=== PATIENT | female | born 1995 | race Caucasian/White ===

== ENCOUNTER → 2018-01-16 11:08 | Outpatient (CLI) | payer OTHER, SELFPAY ==
[2018-01-19 14:14] LABS: HPV Reflexed? NOT INDICATED
== END ==
PROVIDERS: Visit Provider Obstetrics & Gynecology
DX: Z12.4 Encounter for screening for malignant neoplasm of cervix (principal)
CPT/HCPCS: 88175; G0145

== ENCOUNTER 2018-03-04 08:24 | Day surgery (SDC) | payer OTHER, SELFPAY ==
[2018-02-28 13:55] LABS: Hematocrit 45.2 % (37-47); Hemoglobin 14.9 g/dl (12.0-15.0); Mean Corpuscular Hgb 28.8 pg (27.0-32.0); Mean Corpuscular Volume 87.3 fL (81-99); Mean Platelet Vol. 10.1 fl (6.2-12.0); Platelet Count 290 K/mm3 (150-450); RBC Distribution Width CV 12.3 % (11.6-14.6); RBC Distribution Width SD 39.8 fl (35.1-43.9); Red Blood Count 5.18 M/mm3 (4.2-5.4); Scan Indicated on CBC? Y/N NO; White Blood Count 9.9 K/mm3 (4.4-11.0)
[2018-02-28 14:01] LABS: International Normalized Ratio 1.1; Partial Thromboplast Time 27.3 Seconds (24.1-36.2); Prothrombin Time (Protime)PT. 14.3 SECONDS (11.7-14.9)
[2018-02-28 14:23] LABS: Pregnancy, Serum, hCG Quali. NEGATIVE Negative (0-9 Nonpreg)
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
[2018-03-04] VITALS (7 sets, daily range): BP systolic 89–123; BP diastolic 42–77; PULSE 62–78; RESP 16–18; TEMP 36.2–37.2; O2SAT 94–99; BMI 28.5
[2018-03-04 08:55] LABS: Internal QC Validated? YES +Cl - CLEAR BKGD
[2018-03-04 08:58] LABS: Pregnancy, Urine Negative Negative
--- NOTE | 2018-03-04 14:37 | PCM.OP.BLANK ---
Operative Report Date of Procedure: 03/04/18 Surgeon: Lauri Mcgrath MD, FACOG Anesthesia: Stella Freeman CRNA Type of Anesthesia: General Endotracheal Pre-Op Diagnosis: Pelvic Pain, Endometriosis Postoperative Diagnosis: Pelvic Pain, Endometriosis Procedure: Diagnostic Laparoscopy Findings: 5-6 cm uterus with normal appearing fallopian tubes and ovaries and upper abdomen Indications: This is a 22 year old nulliparous patient who has the above diagnosis. She has had this pain for several years and it is relieved by Lupron. She understands that we may not be able to help with the pain that she has been having but would like to know the extent of her disease. All questions were answered to consider the patient well-informed. Procedure: The patient was taken to the operating room where after induction of general anesthesia, she was placed in the dorsolithotomy position and prepped and draped in the usual sterile fashion. The bladder was drained of approximately 50 cc of clear yellow urine with a catheter. Anterior cervix was grasped with the tenaculum. Conn cannula was placed and attention was turned toward the laparoscopic portion of the procedure. Approximately 15 cc of half percent ropivacaine was injected subumbilically and suprapubically. A 5 mm bladeless trocar was placed subumbilically and intraperitoneal placement confirmed. After CO2 insufflation was complete, a 5 mm bladeless trocar was introduced suprapubically. The above findings were noted. The peritoneal cavity and upper abdomen were examined and noted to be normal. Photographs were taken. Laparoscopic instruments with as much CO2 gas as possible were removed and incisions were closed with interrupted 3-0 Monocryl suture. Steri-Strips placed across the incision. Vaginal instruments were removed. Patient tolerated procedure well was taken to recovery room in satisfactory condition sponge instrument and needle counts were all reportedly correct. Estimated blood loss for the case was minimal. Specimens to pathology: None
--- NOTE | 2018-03-04 14:42 | DCINST_ITS ---
Discharge Diet: No Restrictions - Increase fluid intake for the next 48 hours. Discharge Activity: Return to Normal Activity, May Drive - when you are no longer taking pain/narcotic medicines., May Shower, May Take a Tub Bath May resume sexual activity in: 2 weeks Additional Activity Instructions:: Ambulate often the next week after surgery. Nothing in the vagina for 5 days. Call your doctor if your incision/area has: Continuous Slow Oozing, Sudden Increased Bleeding, Increased Pain/ Swelling, Increased Redness, Foul Smelling Discharge Call your doctor if you observe: Fever of 101 or Higher, Inability to urinate, Inability to have a bowel movement, Using more than one pad per hour Allergies/Adverse Reactions: Allergies acetaminophen [From Vicodin] Allergy (Verified 02/25/18 14:57) Anaphylaxis hydrocodone bitartrate [From Vicodin] Allergy (Verified 02/25/18 14:57) Anaphylaxis Sulfa (Sulfonamide Antibiotics) Allergy (Verified 02/25/18 14:57) Rash Medications to take at Discharge MedroxyPROGESTERone [Depo-Provera] 150 mg IM Q1M 05/18/14 Oxycodone [Oxyir] 5 mg PO Q6H PRN PRN 7 Days #10 tab 03/04/18 The following prescriptions were given: Oxycodone [Oxyir] 5 mg PO Q6H PRN PRN 7 Days #10 tab PRN Reason: Severe Pain (6-05/29) Primary Care Physician: Elisabet Webster PA-C [Primary Care Provider] - Test Results: Test results from this visit will be discussed in further detail at your follow- up appointment, if applicable. Please Follow Up With: Lauri Mcgrath MD - [phone] When: 2-3 weeks
[2018-03-04] MEDS: Ropivacaine 0.5% 30 ML Vial (14:59)
== END 2018-03-04 17:40 | disposition home or self-care (01) ==
LOC: SDC 08:24 → AC 08:25
PROVIDERS: Anesthesiology; Family Provider Family Medicine; PCP Family Medicine; Visit Provider Obstetrics & Gynecology
PROC: (CPT 49320; principal; 2018-03-04 10:55)
DX: R10.2 Pelvic and perineal pain (principal); N80.9 Endometriosis, unspecified; K21.9 Gastro-esophageal reflux disease without esophagitis; F17.210 Nicotine dependence, cigarettes, uncomplicated
CPT/HCPCS: 49320; 36415; 81025; 84703; 85027; 85610; 85730; 86850; 86900; J7120; J2405

== ENCOUNTER → 2018-06-12 14:52 | Outpatient (CLI) | payer OTHER, SELFPAY ==
[2018-06-12 17:57] LABS: CRP < 2.90 mg/L (0.0-3.0)
[2018-06-14 15:56] LABS: Endomysial Antibody IgA Negative (Negative)
[2018-06-15 13:28] LABS: Immunoglobulin A 125 mg/dL (87-352); t-Transglutaminase IgA <2 U/mL (0-3)
== END ==
PROVIDERS: Family Provider Family Medicine; PCP Family Medicine; Referring Provider Internal Medicine Gastroenterology; Visit Provider Internal Medicine Gastroenterology
DX: R19.7 Diarrhea, unspecified (principal)
CPT/HCPCS: 36415; 82784; 83516; 86140; 86255

== ENCOUNTER 2019-08-04 11:25 | Day surgery (SDC) | payer OTHER, SELFPAY ==
--- NOTE | 2019-07-22 01:52 | HP_ITS ---
Intake Vital Signs 07/22/19 Body Mass Index (BMI) 28.5 07/22/19 Height 4 ft 10 in 07/22/19 Weight: 130 lb 07/22/19 Body Mass Index (BMI) 27.1 07/22/19 Blood Pressure 151/91 H 07/22/19 Blood Pressure Location Rt brachial 07/22/19 Blood Pressure Position Sitting 07/22/19 Respiratory Rate 16 07/22/19 Pulse Rate 84 07/22/19 Pulse Source Monitor 07/22/19 Temperature 98.5 F 07/22/19 Temperature Source Oral 07/22/19 Pulse Ox 99 07/22/19 Oxygen Delivery Method room air Intake Visit Reasons: UPDATE H&P FOR APPY Truckload Checker Required: No Is patient in pain?: Yes (RLQ/ Epigastric area) Pain scale (1-10): 5 Allergies acetaminophen [From Vicodin] Allergy (Verified 07/22/19 13:46) Anaphylaxis hydrocodone bitartrate [From Vicodin] Allergy (Verified 07/22/19 13:46) Anaphylaxis Sulfa (Sulfonamide Antibiotics) Allergy (Verified 07/22/19 13:46) Rash Medications alosetron 1 mg tablet 1.5 mg PO DAILY #30 tab 07/22/19 [History Confirmed 07/22/19] leuprolide 3.75 mg (1 month)IM syringe-norethindrone 5 mg (30) tablets ea IM .QMONTHLY #1 ea 07/22/19 [History Confirmed 07/22/19] PFSH Medical History (Updated 07/22/19 @ 13:36 by Ariana Hodges) Diarrhea (Acute) Nausea & vomiting (Acute) Abdominal pain (Acute) Back problem (Acute) Fatigue (Acute) Surgical History (Updated 07/22/19 @ 13:36 by Ariana Hodges) Hx of colonoscopy (Acute) Hx of wisdom tooth extraction (Acute) Hx of laparoscopy (Acute) History of tonsillectomy and adenoidectomy (Acute) Hx of cholecystectomy (Acute) Family History (Updated 07/22/19 @ 13:37 by Ariana Hodges) Father Diabetes High cholesterol Cancer Mother Hypertension Thyroid disorder Brother Thyroid disorder Social History (Updated 07/22/19 @ 13:54 by Lokesh Roe MD) Smoking Status: Current every day smoker second hand exposure: Yes alcohol intake: never substance use type: does not use caffeine: Yes what type of physical activity do you participate in: none frequency: does not exercise HPI HPI HPI: MAGDY BELLA, is a 23 F who presents to the office today for HPI HPI Surgical H&P: Yes HPI: MAGDY BELLA, is a 23 F who presents to the office today for Preoperative visit before appendectomy. Patient has had chronic right lower quadrant pain and has had repeated CAT scans for possible appendicitis and this was attributed to her ovaries. She is undergoing right oophorectomy next week and requested appendectomy at the same time. ROS General General: No weight change or fatigue Cardio Cardiovascular: No murmur, pacemaker, heart disease, atrial fibrillation, high blood pressure, heart attack, heart stent, palpitations, shortness of breat with exertion or chest pain Psych Psychiatric: No depression or anxiety Resp Respiratory: No shortness of breath, No sleep apnea, No cough, No COPD, No asthma, No emphysema, No wheezing Gastro Gastrointestinal: Yes abdominal pain, No nausea or vomiting, No diarrhea, No constipation, No blood in stool, No acid reflux, No hemorrhoids, No ulcers, No gallbladder problem, No black,tarry stools Daren Hematologic: No blood thinners Exam Const General: cooperative Orientation: alert, oriented x3 Resp Effort & Inspection: normal respiratory effort Auscultation: clear to auscultation bilaterally Cardio Rate: regular rate Rhythm: regular rhythm Heart Sounds: no murmurs GI Inspection: non-distended Palpation: soft, nontender Assessment & Plan Problems 1. RLQ abdominal pain R10.31 Plan The patient has having frequent right lower quadrant pain. She has had several CAT scans and several emergency room visits. She is scheduled to go undergo right oophorectomy and would like right appendectomy the same time so this is no longer in the differential diagnosis. I discussed laparoscopic appendectomy with the patient in detail. I discussed the risks including but not limited to bleeding, infection, injury to surrounding organs such as the colon or small bowel. The patient understands the risks and would like appendectomy at the same time as her oophorectomy. Lokesh Roe MD Pager: [facility] [address] [place] [address] [address] [place] [address] Office: Coding Level of Care Code Off vis,new,level 3 Diagnoses RLQ abdominal pain R10.31 07/22/19 1504 <Electronically signed by Lokesh zamora MD> Date _ Lokesh Roe MD I have re-examined the patient. There are no clinical changes since date of exam.
[2019-07-22 13:51] VITALS: BMI 28.5
[2019-07-30 13:26] LABS: Hematocrit 45.6 % (37-47); Mean Corp Hgb Conc 32.9 g/dL (32-36); Mean Corpuscular Hgb 28.7 pg (27.0-32.0); Mean Corpuscular Volume 87.2 fL (81-99); Mean Platelet Vol. 9.7 fl (6.2-12.0); Platelet Count 319 K/mm3 (150-450); RBC Distribution Width CV 11.7 % (11.6-14.6); RBC Distribution Width SD 37.6 fl (35.1-43.9); Red Blood Count 5.23 M/mm3 (4.2-5.4)
[2019-07-30 13:47] LABS: Internal QC Validated? YES +Cl - CLEAR BKGD; International Normalized Ratio 1.1; Partial Thromboplast Time 27.9 Seconds (24.1-36.2); Pregnancy, Serum, hCG Quali. NEGATIVE Negative; Prothrombin Time (Protime)PT. 13.9 SECONDS (11.7-14.9)
[2019-07-30 13:48] LABS: Creatinine, Serum 0.73 mg/dL (0.55-1.02); EST Glomerular Filtration Rate 102 mL/min (>60); Est Glom Filt Rate - Afr Amer 124 mL/min (>60)
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
[2019-08-04] VITALS (8 sets, daily range): BP systolic 106–122; BP diastolic 67–76; PULSE 58–85; RESP 15–18; TEMP 36.2–37.1; O2SAT 95–100; BMI 26.8
[2019-08-04 12:02] LABS: Internal QC Validated? YES +Cl - CLEAR BKGD; Pregnancy, Urine Negative Negative
[2019-08-04] MEDS: Lactated Ringers 1,000 ML 100 ML IV ×2 (12:11→14:15)
--- NOTE | 2019-08-04 13:20 | APP_PTH ---
PATIENT: MAGDY BELLA LOC: [facility] U#:[id number] AGE/SX: 23/F ROOM: RE08/04/[address]: Dr. Lauri Mcgrath MD : 1995 BED: DIS: 08/04/2019 SPEC #: [id number] RECD: 08/04/19 15:28 STATUS: BEKA REArsalan #: [id number] LOKESH: 08/04/19 13:[address]: Lauri Mcgrath DEPT: SURGICAL PATHOLOGY RECD BY: Martínez Perez ENTERED: 08/05/19 11:13 SP TYPE: APPENDIX OTHR DR: Dr. Lokesh Roe MD Elisabet ParsonsUDAY Tissues: A - Fallopian tube B - Appendix, NOS Procedures: Surgery Specimen Level III Surgery Specimen Level IV HEADER OPERATION: Laparoscopic salpingo-oophorectomy PRE-OP DIAGNOSIS: Abdominal pain, RLQ, endometriosis, pelvic and perineal pain TISSUE SUBMITTED: A - Right fallopian tube, B - Appendix MICROSCOPIC DIAGNOSIS A. Right fallopian tube, salpingectomy: Complete cross-section of fallopian tube with benign paratubal cyst. Fragments of ovary with follicular and corpus luteal cysts and corpora albicantia. B. Appendix, appendectomy: Early acute appendicitis. AM:marisol 08/06/19 COMMENT Case has been reviewed in consultation with Dr. Ying who concurs with the above diagnosis. IDC:LIA MICROSCOPIC DESCRIPTION Slides are reviewed. GROSS DESCRIPTION A - Received in fixative is one container labeled with the patient's name and designated right fallopian tube. The specimen consists of a fallopian tube measuring 4 cm in length and 0.5 cm in diameter. The fimbrial end is identified. Sections reveal unremarkable cut surfaces. Also present in the container are three variable sized pieces of tissue consistent with pieces of ovarian tissue measuring in aggregate 5.5 x 2 x 0.6 cm. A portion of the wall appears to consist of a cyst which measures 2 cm in greatest dimension. Soda Flaker sections are submitted in three cassettes as follows: 1 - fallopian tube, 2 & 3 - ovary. B - Received is one container labeled with the patient's name and designated appendix. The specimen consists of an S-shaped appendix measuring 4 cm in length and 0.6 cm in diameter. The attached periappendiceal adipose tissue measures up to 1.5 cm in width. No obvious perforation is identified. Sections of the periappendiceal adipose tissue do not reveal any obviously enlarged lymph node. The lumen does not contain any fecalith. The entire appendix is submitted in two cassettes as follows: 1 - tip and proximal portion, 2 - rest of the appendix. / LIA:marisol 08/05/19 TC:2 CPT: 95177, 95908
--- NOTE | 2019-08-04 14:23 | OP.PCM_ITS ---
Report of Operation Date of Procedure: 08/04/19 Pre-Operative Diagnosis: Chronic Pelvic Pain, Right Lower Quadrant Pain, E ndometriosis Post-Operative Diagnosis: Chronic Pelvic Pain, Right Lower Quadrant Pain, Endometriosis Surgery/Procedure Performed:: Diagnostic Laparoscopy, Right Salpingo- Oophorectomy, Laparoscopic Appendectomy Description of Surgical Findings:: Normal pelvis mental health nurse practitioner: Ivan Mcmanus Type of Anesthesia:: General - Endotracheal Anesthesiologist: Santos Murray Specimen's removed: Bilateral fallopian tubes and ovaries, appendix Estimated Blood Loss (mL): Minimal Fluids Replaced: Crystalloid Description of Procedure: Surgeon: Lauri Mcgrath MD, FACOG -- L/S RSO Co-surgeon: Lokesh Roe FACS -- Appendectomy dictated separately Indications: This is a 23 year old patient G0 who has the above diagnosis. She desires the above surgery because her pain is so severe. She understands that this procedure may not help with the pain that she has been having. All questions were answered to consider the patient well-informed. Procedure: The patient was taken to the operating room where after induction of general anesthesia, she was placed in the dorsolithotomy position and prepped and draped in the usual sterile fashion. The bladder was drained of approximately 50 cc of clear yellow urine with a catheter. Anterior cervix was grasped with the tenaculum. Conn cannula was placed and attention was turned toward the laparoscopic portion of the procedure. Approximately 20 cc of half percent ropivacaine was injected subumbilically, suprapubically and midway between. A 5 mm bladeless trocar was placed subumbilically and intraperitoneal placement confirmed. After CO2 insufflation was complete, a 5 mm bladeless trocar was introduced suprapubically. The above findings were noted. A 5 mm bladeless trocar was placed midway between these 2 ports. Each fallopian tube was identified to its fimbriated end and an Enseal device was used to divide the infundibulopelvic ligament on the right side after replacing the 5 mm subumbilical port with a 12 mm blade less port. After the tube and ovary were the tube and ovary were brought through the 12 mm port in pieces. The peritoneal cavity and upper abdomen were examined and noted to be normal. At this point in the procedure Dr. Roe proceeded with the laparoscopic appendectomy. After completion of his portion of the procedure, laparoscopic instruments with as much CO2 gas as possible were removed and incisions were closed with interrupted 4-0 Monocryl suture. Steri-Strips placed across the incision. Vaginal instruments were removed. Patient tolerated procedure well was taken to recovery room in satisfactory condition sponge instrument and needle counts were all reportedly correct. Estimated blood loss for the case was minimal. There were no apparent complications of the surgery. Specimens to pathology were right fallopian tube and ovary and appendix Grafts/Implants Used: None - Complications None - Admit VTE Documentation VTE Present on Admission: Yes VTE Mechan Device Prophylaxis: SCD's
[2019-08-04] MEDS: Ropivacaine 0.5% 30 ML Vial (14:30)
--- NOTE | 2019-08-04 14:34 | DCINST_ITS ---
Discharge Diet: No Restrictions - Increase fluid intake for the next 48 hours. Discharge Activity: Return to Normal Activity, May Drive - when you are no longer taking pain/narcotic medicines., May Shower, May Take a Tub Bath May resume sexual activity in: 3 weeks Additional Activity Instructions:: Ambulate often the next week after surgery. Nothing in the vagina for 5 days. Call your doctor if your incision/area has: Continuous Slow Oozing, Sudden Increased Bleeding, Increased Pain/ Swelling, Increased Redness, Foul Smelling Discharge Call your doctor if you observe: Fever of 101 or Higher, Inability to urinate, Inability to have a bowel movement, Using more than one pad per hour Allergies/Adverse Reactions: Allergies acetaminophen [From Vicodin] Allergy (Verified 08/04/19 11:49) Anaphylaxis hydrocodone bitartrate [From Vicodin] Allergy (Verified 08/04/19 11:49) Anaphylaxis Sulfa (Sulfonamide Antibiotics) Allergy (Verified 08/04/19 11:49) Rash Medications to take at Discharge alosetron 1 mg tablet 1.5 mg PO DAILY #30 tab 07/22/19 Oxycodone [Oxyir] 5 mg PO Q6H PRN PRN 7 Days #10 tab 08/04/19 The following prescriptions were given: Oxycodone [Oxyir] 5 mg PO Q6H PRN PRN 7 Days #10 tab PRN Reason: Pain Score 6-10/10 Transmission Status: Received by [facility]/pharmacy #[id number] Primary Care Physician: Elisabet Webtser PA-C [Primary Care Provider] - Test Results: Test results from this visit will be discussed in further detail at your follow- up appointment, if applicable. Please Follow Up With: Lauri Mcgrath MD - [phone] When: 2 to 3 weeks
[2019-08-04] MEDS: Ketorolac 30 MG/ML Syringe IV (14:57)
[2019-08-04] MEDS: oxyCODONE 5 MG Tablet PO (16:00)
--- NOTE | 2019-08-08 07:42 | PCM.OPRPT ---
Problem List (1) Abdominal pain Status: Acute Qualifiers: Abdominal location: right lower quadrant Qualified Code(s): R10.31 - Right lower quadrant pain Report of Operation Date of Procedure: 08/08/19 Pre-Operative Diagnosis: Right lower quadrant pain Post-Operative Diagnosis: Same Surgery/Procedure Performed:: Laparoscopic appendectomy Specimen's removed: Appendix Description of Procedure: The patient was brought back to the operating room and general anesthesia was induced. Dr. Mcgrath performed entry into the abdomen and a right oophorectomy. Once his portion of the procedure was complete the appendix was grasped and elevated and the Enseal was used to take down the mesoappendix. Stapler was used to come across the appendiceal base. The appendix was placed in a bag and removed through the umbilical incision. The area was inspected with good hemostasis. Next the ports were removed under direct visualization and the umbilical fascial incision was closed with a [id number] 0 Vicryl suture. Skin incisions were anesthetized and closed with 4-0 Monocryl and Steri-Strips and bandages. Patient tolerated the procedure well was taken to PACU in stable condition. Please see Dr. Mcgrath's portion of the operative report for his surgical procedure. - Admit VTE Documentation VTE Mechan Device Prophylaxis: SCD's
== END 2019-08-04 16:51 | disposition home or self-care (01) ==
LOC: SDC 11:25 → AC 11:26
PROVIDERS: Anesthesiology; Surgery; Family Provider Family Medicine; PCP Family Medicine; Referring Provider Obstetrics & Gynecology; Visit Provider Obstetrics & Gynecology
PROC: (CPT 58720; principal; 2019-08-04 13:00)
PROC: 0DTJ4ZZ Resection of Appendix, Percutaneous Endoscopic Approach (ICD-10-PCS; CPT 44970; 2019-08-04 13:00)
DX: N80.9 Endometriosis, unspecified (principal); N83.11 Corpus luteum cyst of right ovary; N83.291 Other ovarian cyst, right side; K35.80 Unspecified acute appendicitis; R10.31 Right lower quadrant pain; G89.29 Other chronic pain; F17.200 Nicotine dependence, unspecified, uncomplicated; Z88.5 Allergy status to narcotic agent; Z88.2 Allergy status to sulfonamides; Z88.0 Allergy status to penicillin; Z90.49 Acquired absence of other specified parts of digestive tract; N83.8 Other noninflammatory disorders of ovary, fallopian tube and broad ligament
CPT/HCPCS: 44970; 58661; 36415; 81025; 82565; 84703; 85027; 85610; 85730; 86850; 86900; 86901; 88302; 88304; 88305; J7120; C1760; J2405

== ENCOUNTER → 2020-02-05 13:28 | Outpatient (CLI) | payer SELFPAY ==
[2019-08-04 11:55] VITALS: BMI 26.8
[2020-02-10 04:59] LABS: HPV Reflexed? NOT INDICATED
== END ==
PROVIDERS: PCP Family Medicine; Visit Provider Obstetrics & Gynecology
DX: Z12.4 Encounter for screening for malignant neoplasm of cervix (principal)
CPT/HCPCS: 88175; G0145

== ENCOUNTER → 2020-07-21 15:39 | Outpatient (CLI) | payer OTHER, SELFPAY ==
[2019-08-04 11:55] VITALS: BMI 26.8
[2020-07-21 18:13] LABS: Absolute Lymphocyte Count 4.41 X10^3/uL (0.83-4.51); Basophil# 0.06 X10^3/uL; Basophil% 0.6 % (0-1); Eosinophil# 0.23 X10^3/uL; Eosinophils% 2.3 % (0-5); Hematocrit 46.3 % (37-47); Hemoglobin 14.7 g/dL (12.0-15.0); Lymphocyte # 4.41 X10^3/ul (4.0); Lymphocyte % 43.2 % (19-41); Mean Corp Hgb Conc 31.7 g/dL (32-36); Mean Corpuscular Hgb 29.1 pg (27.0-32.0); Mean Corpuscular Volume 91.5 fL (81-99); Mean Platelet Vol. 10.4 fl (6.2-12.0); Monocyte# 0.46 X10^3/uL; Monocyte% 4.5 % (0-10); NRBC Flagged by Analyzer 0 % (0-5); Neutrophil # 5.01 X10^3/uL (2.7-7.7); Neutrophil % 49.1 % (47-70); Platelet Count 331 K/mm3 (150-450); RBC Distribution Width CV 12.1 % (11.6-14.6); RBC Distribution Width SD 40.4 fl (35.1-43.9); Red Blood Count 5.06 M/mm3 (4.2-5.4); White Blood Count 10.2 K/mm3 (4.4-11.0)
[2020-07-21 18:41] LABS: AST(SGOT) 15 U/L (15-37); Alanine Aminotransfer ALT/SGPT 29 U/L (13-56); Alkaline Phosphatase 96 U/L (45-117); Anion Gap 6 (5-15); BUN 11 mg/dL (7-18); BUN/Creat Ratio 14.2 RATIO (10-20); Bilirubin, Direct 0.09 mg/dL (0.00-0.30); Calcium,Total 9.5 mg/dL (8.5-10.1); Chloride 110 mmol/L (98-107); Creatinine, Serum 0.77 mg/dL (0.55-1.02); EST Glomerular Filtration Rate 95 mL/min (>60); Est Glom Filt Rate - Afr Amer 115 mL/min (>60); Globulin 3.7 g/dL (2.2-4.2); Glucose 84 mg/dL (74-106); Potassium 3.7 mmol/L (3.5-5.1); Protein, Total 7.7 g/dL (6.4-8.2); Sodium Level 142 mmol/L (136-145)
[2020-07-22 09:06] LABS: Hepatitis B Surface Antibody Non-Reactive; Hepatitis B Surface Antigen Non-Reactive (Nonreactive); Hepatitis C Antibody Non-Reactive (Nonreactive)
[2020-07-24 03:07] LABS: QNTFERON TB Mitogen Value > 10.00 IU/mL (.); QNTFERON TB Nil Value 0.13 IU/mL (.); QNTFERON TB1+ Ag Value 0.08 IU/mL (.); QNTFERON TB2+ Ag Value 0.07 IU/mL (.)
[2020-07-26 04:26] LABS: Hepatitis B Core Ab Total Negative (Negative); QNTIFERON TB Positive Criteria Negative (Negative)
== END ==
PROVIDERS: PCP Family Medicine; Referring Provider Dermatology; Visit Provider Dermatology
DX: L40.0 Psoriasis vulgaris (principal); Z79.899 Other long term (current) drug therapy
CPT/HCPCS: 36415; 80048; 80076; 85025; 86480; 86704; 86706; 86803; 87340

== ENCOUNTER 2020-08-30 05:24 | Day surgery (SDC) | payer OTHER, SELFPAY ==
[2019-08-04 11:55] VITALS: BMI 26.8
[2020-08-25 12:39] LABS: Prothrombin Time (Protime)PT. 12.9 SECONDS (11.7-14.9)
[2020-08-25 12:49] LABS: Hemoglobin 15.3 g/dL (12.0-15.0); Mean Corp Hgb Conc 32.6 g/dL (32-36); Mean Corpuscular Hgb 28.9 pg (27.0-32.0); Mean Corpuscular Volume 88.8 fL (81-99); Mean Platelet Vol. 10.2 fl (6.2-12.0); Platelet Count 360 K/mm3 (150-450); RBC Distribution Width CV 11.8 % (11.6-14.6); RBC Distribution Width SD 38.5 fl (35.1-43.9); Red Blood Count 5.29 M/mm3 (4.2-5.4); White Blood Count 8.8 K/mm3 (4.4-11.0)
[2020-08-25 13:15] LABS: Creatinine, Serum 0.76 mg/dL (0.55-1.02); EST Glomerular Filtration Rate 96 mL/min (>60); Est Glom Filt Rate - Afr Amer 117 mL/min (>60)
[2020-08-25 13:18] LABS: Internal QC Validated? YES +Cl - CLEAR BKGD; Pregnancy, Serum, hCG Quali. NEGATIVE Negative
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
[2020-08-30] VITALS (11 sets, daily range): BP systolic 102–127; BP diastolic 55–88; PULSE 59–94; RESP 14–18; TEMP 36.1–36.9; O2SAT 97–100; BMI 29.8
--- NOTE | 2020-08-30 | HYST_PTH ---
PATIENT: MAGDY BELLA LOC: [facility] U#:[id number] AGE/SX: 24/F ROOM: RE08/30/[address]: Dr. Lauri Mcgrath MD : [id number] BED: DIS: 08/31/2020 SPEC #: [id number] RECD: 08/30/20 12:04 STATUS: BEKA REArsalan #: [id number] LOKESH: 08/30/20 00:[address]: Lauri Mcgrath DEPT: SURGICAL PATHOLOGY RECD BY: Christiano Grant ENTERED: 08/30/20 12:05 SP TYPE: HYSTERECT OTHR DR: Elisabet Webster PA-C Tissues: Uterus, NOS Procedures: Surgery Specimen Level V HEADER OPERATION: Robotic assisted vaginal hysterectomy, left salpingo-oophorectomy PRE-OP DIAGNOSIS: Pelvic pain and severe endometriosis TISSUE SUBMITTED: Uterus, cervix, left fallopian tube, left ovary MICROSCOPIC DIAGNOSIS Uterus, cervix, left fallopian tube and ovary, vaginal hysterectomy and left salpingo-oophorectomy: Cervix - chronic inflammation. Endometrium - inactive endometrium with focal cystic changes. Myometrium - no pathologic diagnosis. Left fallopian tube - no pathologic diagnosis. Left ovary - physiologic follicular cysts. SJ:marisol 08/31/2020 MICROSCOPIC DESCRIPTION Slides are reviewed. GROSS DESCRIPTION Received in fixative is one container labeled with the patient's name and designated uterus, cervix, left fallopian tube and left ovary. The specimen consists of a hysterectomy specimen consisting of a uterus with cervix and attached left fallopian tube and ovary. The uterus with cervix weighs 24 gm and measures 6 x 3.5 x 2.5 cm. The serosal surface is vela, glistening. The ectocervical mucosa is unremarkable. The external os is circular in contour. The endocervical canal measures 2.5 cm in length and the endocervical mucosa is unremarkable. The triangular endometrial cavity measures 3.5 cm in length and 1 cm in width. The endometrium is vela, glistening without any mass lesion and measures 0.1 cm in thickness. The endometrium is partially denuded from the underlying myometrium. Sections of the uterine wall do not reveal any mass lesion and measures 1.2 cm in thickness. The fallopian tube measures 4.5 cm in length and 0.4 cm in diameter. The fimbrial end is identified. Sections reveal unremarkable cut surfaces. The soft to cystic left ovary measures 3 x 2 x 1.5 cm. Sections reveal multiple cysts filled with clear to hemorrhagic fluid. The largest cyst measures 0.8 cm in diameter. Chemistry Research Assistant sections are submitted in nine cassettes as follows: 1 - anterior cervix, 2 - posterior cervix, 3 & 4 - anterior uterine wall, 5 & 6 - posterior uterine wall, 7 - left fallopian tube, 8 & 9 - left ovary. / SJ:rg 08/30/20 TC:5 CPT: 82475
[2020-08-30 05:59] LABS: Internal QC Validated? YES +Cl - CLEAR BKGD; Pregnancy, Urine Negative Negative
[2020-08-30] MEDS: Lactated Ringers 1,000 ML 100 ML IV ×2 (06:22→06:24)
[2020-08-30] MEDS: Cefotetan 2 GM in 0.9% NS 100 ML IV (07:25)
--- NOTE | 2020-08-30 07:41 | OP.PCM_ITS ---
Report of Operation Date of Procedure: 08/30/20 Pre-Operative Diagnosis: Pelvic Pain and Severe Endometriosis Post-Operative Diagnosis: Pelvic Pain and Severe Endometriosis Surgery/Procedure Performed:: Robotic Assisted Vaginal Hysterectomy and Left Salpingo-Oophorectomy Description of Surgical Findings:: 8 cm uterus with normal-appearing left fallopian tube and ovary. Absent right fallopian tube and ovary. rubber goods repairer: Trice Rivera Type of Anesthesia:: General - Endotracheal Anesthesiologist: Santos Murray Specimen's removed: Uterus and left fallopian tube and ovary Drains: Marion to straight drain Estimated Blood Loss (mL): Minimal Fluids Replaced: Crystalloid Description of Procedure: Surgeon: Lauri Mcgrath MD, FACOG Indication: This is a 24 year old patient 0 who has been having problems with pelvic pain and severe endometriosis for years. Multiple conservative measures have not been helpful and have been exhausted. The patient has been counseled regarding the risks, benefits and alternatives of this procedure including the possibility of bleeding, infection, and injury to surrounding structures such as bowel bladder and all questions were answered. She understands that since BSO is needed that she will need to be on HRT for an indefinite period of time. She also understands that after this procedure she will be unable to have children. Procedure: Pt taken to the operating room where, after induction of general anesthesia, the patient was prepped and draped in the usual sterile fashion and placed on a non-slip Huggy-u-vac device. Trendelenburg test was satisfactory. Bladder was drained of urine with a Marion catheter which was left in place. Anterior cervix grasped and cervix was dilated to about 3-4 mm. Uterus sounded to 7 cms. 0-Vicryl suture was placed at the 3:00 and 9:00 position of the cervix. A small Advincula Security Investigator Uterine Manipulator was then placed in the uterus and attention was turned to the laparoscopic portion of the procedure. Ropivocaine 0.5% was injected approximately 2-3 cm superior to the umbilicus and an 8 mm robotic camera port was introduced directly with intraperitoneal placement confirmed with CO2 insufflation. 8 mm robotic side ports were i ntroduced under direct visualization approximately 10 cm lateral and 2 cm inferior to the umbilical port. A 5 mm left upper quadrant port was introduced and airseal insufflation with CO2 was started. The above findings were noted. Robot was docked without difficulty and attention turned to the robotic portion of the procedure. Approximately 30 cc of Ropivicaine was used. Left infundibulopelvic ligament was ligated with 35 rangel bipolar coagulation to the level of the round ligament. The posterior aspect of the cervix was identified and then opened for about 1 cm using 25 watt monopolar cautery. Bladder flap was opened and divided to the level of the round ligaments using monopolar cautery. Progressive bites were then ligated on each side of the cervix with 35 rangel bipolar cautery to the uterine arteries. The posterior vaginal mucosa was entered and cervix circumscribed with monopolar cautery. Uterus and attached left tube and ovary were removed through the vagina. Vaginal cuff was closed first with 0-Vicryl Yung stitches placed at each angle followed by closure of the mid-cuff with 0-Monocryl V-lock suture in two layers. Pelvis was copiously irrigated with saline and the right and left ureters were noted to peristalse. Robot was undocked and trocars were removed with as much gas as possible. Incisions were closed with 4-0 Monocryl subcuticular sutures and incisions covered with steri-strips. The patient tolerated the procedure well and was taken to the recovery room in satisfactory condition. Sponge, instruments and needle counts were all correct. There were no apparent complications of the surgery. Cefotan 2 gms IV was given prior to the procedure. Estimated Blood Loss: Minimal Specimen to Pathology: Uterus and left fallopian tube and ovary Grafts/Implants Used: None - Complications None - Admit VTE Documentation VTE Present on Admission: Yes VTE Mechan Device Prophylaxis: SCD's VTE Pharm Prophylaxis ordered?: Yes
[2020-08-30] MEDS: Lubricating Jelly 60 GM Tube 30 GM TOPICAL (07:48)
[2020-08-30] MEDS: Ropivacaine 0.5% 30 ML Vial (08:00)
--- NOTE | 2020-08-30 09:02 | DCINST_ITS ---
Discharge Diet: No Restrictions Discharge Activity: Return to Normal Activity, May Not Drive - while taking narcotic pain medications., May Shower, May Take a Tub Bath May resume sexual activity in: 6-8 weeks Call your doctor if your incision/area has: Continuous Slow Oozing, Sudden Inc reased Bleeding, Increased Pain/ Swelling, Increased Redness, Foul Smelling Discharge Call your doctor if you observe: Fever of 101 or Higher, Inability to urinate, Inability to have a bowel movement, Using more than one pad per hour Allergies/Adverse Reactions: Allergies acetaminophen [From Vicodin] Allergy (Verified 08/30/20 05:57) Anaphylaxis ALLERGYIS IS TO HYDROCODONE NOT TYLENOL hydrocodone bitartrate [From Vicodin] Allergy (Verified 08/23/20 14:51) Anaphylaxis Penicillins Allergy (Verified 08/27/20 09:39) Rash Sulfa (Sulfonamide Antibiotics) Allergy (Verified 08/23/20 14:51) Rash Medications to take at Discharge alosetron 1 mg tablet 2 mg PO DAILY #30 tab 07/22/19 Docusate Sodium [Colace] 100 mg PO BID PRN PRN #60 cap 08/30/20 Estradiol 2 mg PO DAILY #100 tab 08/30/20 Oxycodone [Oxyir] 5 mg PO Q6H PRN PRN 7 Days #10 tab 08/30/20 The following prescriptions were given: Docusate Sodium [Colace] 100 mg PO BID PRN PRN #60 cap PRN Reason: Constipation Transmission Status: Received by [facility] Estradiol 2 mg PO DAILY #100 tab Transmission Status: Received by [facility] Oxycodone [Oxyir] 5 mg PO Q6H PRN PRN 7 Days #10 tab PRN Reason: Pain Score 6-10 Transmission Status: Received by [facility] Primary Care Physician: Elisabet Webster PASoniaC [Primary Care Provider] - Test Results: Test results from this visit will be discussed in further detail at your follow- up appointment, if applicable. Please Follow Up With: Lauri Mcgrath MD When: 2 to 3 weeks
[2020-08-30] MEDS: Acetaminophen 500 MG Tablet 1000 MG PO ×3 (12:28→23:39)
[2020-08-30] MEDS: Ketorolac 30 MG/ML Syringe IV ×2 (14:38→21:00)
[2020-08-30] MEDS: Lactated Ringers 1,000 ML 125 ML IV ×2 (15:48→23:26)
[2020-08-30] MEDS: Enoxaparin 30 MG/0.3 ML Syringe SC (17:48)
[2020-08-30] MEDS: Docusate Sodium 100 MG Capsule PO (21:00)
[2020-08-30] MEDS: 0.9% Saline Lock 10 ML Syringe IV (23:39)
[2020-08-31 03:06] VITALS: BP 97/70; PULSE 67; RESP 18; TEMP 36.5; O2SAT 97
[2020-08-31] MEDS: 0.9% Saline Lock 10 ML Syringe IV ×2 (03:09→08:46)
[2020-08-31] MEDS: Ketorolac 30 MG/ML Syringe IV ×2 (03:10→08:45)
[2020-08-31] MEDS: Acetaminophen 500 MG Tablet 1000 MG PO (06:15)
[2020-08-31] MEDS: Lactated Ringers 1,000 ML 125 ML IV (06:17)
[2020-08-31 07:16] LABS: Hematocrit 39.1 % (37-47); Hemoglobin 12.9 g/dL (12.0-15.0); Mean Corpuscular Hgb 29.3 pg (27.0-32.0); Mean Corpuscular Volume 88.7 fL (81-99); Mean Platelet Vol. 10.1 fl (6.2-12.0); Platelet Count 241 K/mm3 (150-450); RBC Distribution Width CV 11.9 % (11.6-14.6); RBC Distribution Width SD 38.5 fl (35.1-43.9); Red Blood Count 4.41 M/mm3 (4.2-5.4); White Blood Count 10.8 K/mm3 (4.4-11.0)
[2020-08-31 07:39] VITALS: BP 117/71; PULSE 61; RESP 14; TEMP 36.6; O2SAT 98
[2020-08-31 07:44] LABS: Creatinine, Serum 0.63 mg/dL (0.55-1.02); EST Glomerular Filtration Rate 122 mL/min (>60); Est Glom Filt Rate - Afr Amer 147 mL/min (>60); Estimated Creatinine Clearance 138.37 ml/min
--- NOTE | 2020-08-31 08:30 | PCM.PN.OB ---
Subjective: Patient without complaints. Tolerating diet well. Positive flatus. Able to void on own after Marion discontinued. Ready to go home. Objective: Wounds are clean, dry, intact with minimal vaginal bleeding. Hemoglobin and creatinine okay. Good urine output. - Physical Exam Vitals/I&O's: Vital Signs Temp Pulse Resp BP Pulse Ox 97.9 F 61 14 117/71 98 08/31/20 07:39 08/31/20 07:39 08/31/20 07:39 08/31/20 07:39 08/31/20 07:39 Oxygen Delivery Method Room Air Weight: 142 lb 12.8 oz Body Mass Index (BMI) 29.8 Intake and Output for Last 24 Hours 08/29/20 08/30/20 08/31/20 23:59 23:59 23:59 Intake Total 4954.17 / 4954.17 2256.25 / 2256.25 Output Total 1950 / 1950 1200 / 1200 Balance 3004.17 / 3004.17 1056.25 / 1056.25 Laboratory Results 08/31/20 06:40: WBC 10.8, RBC 4.41, Hgb 12.9, Hct 39.1, MCV 88.7, MCH 29.3, MCHC 33.0, RDW Std Deviation 38.5, RDW Coeff of Anil 11.9, Plt Count 241, MPV 10.1 08/31/20 06:40: Creatinine 0.63, Estim Creat Clear Calc 138.37, Est GFR (MDRD) Af Amer 147, Est GFR (MDRD) Non-Af 122 Current Medications Acetaminophen (Acetaminophen 500 Mg Tablet) 1,000 mg PO Q6 [facility] Last Admin: 08/31/20 06:15 Dose: 1,000 mg Documented by: Docusate Sodium (Docusate Sodium 100 Mg Capsule) 100 mg PO BID [facility] Last Admin: 08/30/20 21:00 Dose: 100 mg Documented by: Lactated Ringer's () 1,000 mls @ 125 mls/hr IV .Q8H [facility] Stop: 08/31/20 09:39 Last Admin: 08/31/20 06:17 Dose: 125 mls/hr Documented by: Ketorolac Tromethamine (Ketorolac 30 Mg/Ml Syringe) 30 mg IV Q6H [facility] Stop: 08/31/20 21:01 Last Admin: 08/31/20 03:10 Dose: 30 mg Documented by: Magnesium Chloride (Magnesium Chloride 64 Mg Delay Rel.Tablet) 128 mg PO DAILY PRN PRN PRN Reason: Constipation Non-Formulary Medication (Alosetron Hcl) 2 mg PO DAILY [facility] Nutritional Formula (Lactose Free) (Ensure Enlive 120 Ml Liquid) 120 ml PO TIDCM HARDIK Last Admin: 08/31/20 07:43 Dose: 120 ml Documented by: Ondansetron HCl (Ondansetron Odt 4 Mg Tablet) 4 mg PO Q6H PRN PRN PRN Reason: NAUSEA Oxycodone HCl (Oxycodone 5 Mg Tablet) 5 mg PO Q4H PRN PRN PRN Reason: Pain Score 4-10 Sodium Chloride (0.9% Saline Lock 10 Ml Syringe) 10 - 40 ml IV UD PRN PRN Reason: SALINE FLUSH Last Admin: 08/31/20 03:09 Dose: 10 ml Documented by: Medical Necessity - Tobacco Use Smoking Status: Current every day smoker Tobacco Use: Cigarettes Assessment/Plan All Active Problems (Last Updated 07/22/19 @ 13:36 by Ariana Hodges) Hx of colonoscopy (Acute) Hx of wisdom tooth extraction (Acute) Hx of laparoscopy (Acute) History of tonsillectomy and adenoidectomy (Acute) Hx of cholecystectomy (Acute) Diarrhea (Acute) Nausea & vomiting (Acute) Abdominal pain (Acute) Back problem (Acute) Fatigue (Acute) Doing well postoperative day #1 status post robotic assisted vaginal hysterectomy and left salpingo-oophorectomy. Will discharge to home with routine instructions.
== END 2020-08-31 09:27 | disposition home or self-care (01) ==
LOC: SDC 05:25 → AC 05:25 → MS3 08-31 09:47
PROVIDERS: Anesthesiology; PCP Family Medicine; Referring Provider Obstetrics & Gynecology; Visit Provider Obstetrics & Gynecology
PROC: 0UT94ZZ Resection of Uterus, Percutaneous Endoscopic Approach (ICD-10-PCS; CPT 58552; principal; 2020-08-30 07:10)
DX: N72 Inflammatory disease of cervix uteri (principal); N83.02 Follicular cyst of left ovary; N80.9 Endometriosis, unspecified; K58.9 Irritable bowel syndrome, unspecified; F41.9 Anxiety disorder, unspecified; F17.210 Nicotine dependence, cigarettes, uncomplicated; Z79.899 Other long term (current) drug therapy
CPT/HCPCS: 00944; 58552; S2900; 36415; 81025; 82565; 84703; 85027; 85610; 85730; 86850; 86900; 86901; 87426; 88307; 99251; C9803; J7120; A4216; G0463; J2405

== ENCOUNTER → 2025-04-01 | Outpatient (CLI) | payer OTHER, SELFPAY ==
[2025-04-03 05:07] LABS: QNTFERON TB Mitogen Value > 10.00 IU/mL (.); QNTFERON TB Nil Value 0.06 IU/mL (.); QNTFERON TB1+ Ag Value 0.12 IU/mL (.); QNTFERON TB2+ Ag Value 0.11 IU/mL (.); QNTIFERON TB Positive Criteria Negative (Negative)
== END | disposition home or self-care (01) ==
LOC: MTLAB 09:36
PROVIDERS: PCP Family Medicine; Referring Provider Dermatology; Visit Provider Dermatology
DX: L40.0 Psoriasis vulgaris (principal); Z79.899 Other long term (current) drug therapy
CPT/HCPCS: 36415; 86480